=== PATIENT | male | born 1965 | race Caucasian/White ===

== ENCOUNTER 2017-06-07 17:05 | Emergency (ER) | payer BC ==
[~2017-06-07] VITALS: Ht 175.3 cm; Wt 68.0 kg
[~2017-06-07 17:05] MED LIST: Keflex PO
[2017-06-07 17:20] LABS: HEMATOCRIT 47.8 % (38.0-50.0); MCH 30.8 PG (29.0-34.0); MCHC 34.3 G/DL (30.0-36.0); MCV 89.8 FL (86-99); MEAN PLAT.VOLUME 8.4 uM^3 (9.0-12.4); PLATELET COUNT 299 K/uL (156-360); RBC DIS.WIDTH-CV 12.7 % (11.8-14.6); RBC DIS.WIDTH-SD 41.8 % (39-53); RED BLOOD COUNT 5.32 M/uL (4.00-5.50); WHITE BLOOD COUNT 12.7 K/uL (4.1-10.2)
[2017-06-07 17:28] LABS: CHLORIDE 108 mEq/L (99-109); SODIUM 138 mEq/L (136-147)
[2017-06-07 17:30] LABS: GLUCOSE 119 mg/dL (70-99)
[2017-06-07 17:31] LABS: ANION GAP 6 MEQ/L (2-14)
[2017-06-07 17:34] LABS: GFR ESTIMATE (CALCULATED) > 59 mL/min/
[2017-06-07 17:35] LABS: UREA NITROGEN (BUN) 5 mg/dL (9-23)
[2017-06-07 17:42] LABS: TROP-I INTERPRETATION NEGATIVE; TROPONIN-I < 0.01 ng/mL (0.0-0.30)
[2017-06-07 17:54] LABS: TOTAL BILIRUBIN 0.4 mg/dL (0.0-1.0)
[2017-06-07 17:55] LABS: ALKALINE PHOSPHATASE 76 IU/L (3-129)
[2017-06-07 17:57] LABS: DIRECT BILIRUBIN 0.2 mg/dL (0.0-0.3)
[2017-06-07 17:58] LABS: LIPASE 36 U/L (1.0-51.0)
[2017-06-07] MEDS ORDERED: PERCOCET 5/31 TABLET PO (20:27)
[2017-06-07] MEDS ORDERED: ZOFRAN ODT4 MG PO (20:27)
[2017-06-07 21:07] VITALS: BP 154/102
== END 2017-06-07 21:08 | disposition home or self-care (01) ==
LOC: EME 17:05 → EXP 17:05
DX: R10.13 Epigastric pain (principal); I10 Essential (primary) hypertension; F17.200 Nicotine dependence, unspecified, uncomplicated; Z82.49 Family history of ischemic heart disease and other diseases of the circulatory system
CPT/HCPCS: 71020; 74177; 80048; 80076; 83690; 84484; 85027; 93005; 99281; 99285; J2405; J3010; J7030